=== PATIENT | female | born 1990 | race Caucasian/White ===

== ENCOUNTER → 2018-06-06 | Outpatient (CLI) | payer OTHER ==
[~2018-06-06] MED LIST: BIRTH CONTROL; OXYC-90 PO; PROM25TA PO; TRVOPS OP
[2018-06-06 12:20] LABS: HEMATOCRIT 41.2 % (37-47); HEMOGLOBIN 13.6 g/dL (12.0-16.0); MEAN CELL VOLUME 90.2 fL (80-100); MEAN CORPUSCULAR HEMOGLOBIN 29.8 pg (25-34); MEAN PLATELET VOLUME 9.6 fL (7.4-10.4); PLATELET COUNT 304 K/uL (130-400); RED CELL DISTRIBUTION WIDTH CV 13.6 % (11.5-14.5); RED CELL DISTRIBUTION WIDTH SD 44.8 fL (36.4-46.3); WHITE BLOOD COUNT 6.77 K/uL (4.8-10.8)
[2018-06-06 12:37] LABS: HEMOGLOBIN A1C 5.4 % (4.5-5.6)
[2018-06-06 12:41] LABS: ALBUMIN 3.3 gm/dl (3.4-5.0); ALKALINE PHOSPHATASE 63 U/L (45-117); ALT/SGPT 43 U/L (12-78); AST/SGOT 21 U/L (15-37); BLOOD UREA NITROGEN 12 mg/dl (7-18); CALCIUM 8.8 mg/dl (8.5-10.1); CARBON DIOXIDE 26 mmol/L (21-32); CHOLESTEROL 155 mg/dl (0-200); CREATININE 0.84 mg/dl (0.60-1.20); GLUCOSE 84 mg/dl (70-99); LDL CHOLESTEROL CALCULATED 71 mg/dl; SODIUM 138 mmol/L (136-145); TOTAL PROTEIN 7.2 gm/dl (6.4-8.2)
== END | disposition home or self-care (01) ==
LOC: MERGE 09:22 → C.LAB 09:22
PROVIDERS: ATTEND Neuromusculoskeletal Medicine & OMM
DX: R73.03 Prediabetes (principal); E28.2 Polycystic ovarian syndrome; E66.01 Morbid (severe) obesity due to excess calories; E78.1 Pure hyperglyceridemia

== ENCOUNTER 2020-05-31 07:34 | Inpatient (IN) ==
[2020-05-31] MEDS ORDERED: OXYTOCIN 30 UNITS/500 ML BAG IV PRN ×2 (09:00→09:02)
--- NOTE | 2020-05-31 09:04 | History & Physical Report ---
Date of Service May 31, 2020 Assessment & Plan (1) Obesity affecting , antepartum: 29yo at 39.1 weeks GA. Presents for IOL. 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 1. Fetus: Cat 1 2. Labor: s/p Arreola. Will start oxytocin. 3. Vitals: WNL 4. GBS negative 5. Hx DVT - D/chery Heparin yesterday. SCDs during labor. Will restart Lovenox . (2) Supervision of normal intrauterine in primigravida: (3) Thrombophilia: Admission and Anticipated Discharge Date Admission Date: May 31, 2020 History of Present Illness Primary Care Provider: Antonio Martinez, DO 29yo at 39.1 weeks GA. Presents for IOL. 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 otherwise complicated by BMI ~50 and frequent migraine GARCIA. OB Labs: Blood Type AB Positive 12/04/19 Antibody Screen NEGATIVE 12/04/19 Hemoglobin 12.0 g/dL (12.0-16.0) 03/15/20 Hematocrit 36.2 % (37-47) L 03/15/20 Mean Corpuscular Volume 89.9 fL (80-100) 12/04/19 Platelet Count 332 K/uL (130-400) 12/04/19 Rubella IgG Antibody Immune (Immune) 12/04/19 Rapid Plasma Reagin Nonreactive (Nonreactive) 12/04/19 Hepatitis B Surface Antigen Neg (Neg) 12/04/19 HIV (1&2) Ab and P24 Ag, 4th Gener Neg (Neg) 12/04/19 Glucose 1 Hour 50 gm Load 138 mg/dl (70-130) H 03/15/20 Maternal Serum Alpha Fetoprotein 31.7 ng/mL 12/24/19 OB Optional Labs: Chlamydia trachomatis RNA NOT DETECTED (NOT DETECTED) 12/04/19 Neisseria gonorrhoeae RNA NOT DETECTED (NOT DETECTED) 12/04/19 Thyroid Stimulating Hormone (TSH) 2.500 uIu/ml (0.300-4.500) 06/06/18 Alpha Fetoprotein Triple Screen SEE NOTE 12/24/19 Labs Reviewed: cf/sma neg panorama low risk afp neg. Allergies Allergy/AdvReac Type Severity Reaction Status Date / Time Sulfa (Sulfonamide Allergy Intermediate HIVES Verified 05/31/20 09:13 Antibiotics) Home Medications Home Medications Medication Instructions Recorded Confirmed Type folic acid 1 mg tablet 1 mg PO DAILY 09/18/19 05/31/20 History prenat.vits,pola,hca-[id number] 1 tab PO DAILY 12/01/19 05/31/20 History fenofibrate nanocrystallized 145 145 mg PO DAILY #30 tab 12/11/19 05/31/20 Rx mg tablet breast pump #1 ea 04/27/20 05/26/20 Rx omega-3 acid ethyl esters 1 gram 2 cap PO BID #120 cap 05/11/20 05/31/20 Rx capsule propranolol 20 mg tablet 20 mg PO BID #60 tab 05/11/20 05/31/20 Rx heparin (porcine) 5,000 unit SUBCUT Q12H 05/30/20 05/31/20 History Patient History Social History Preferred Language: Jamaican Communication Ability: Effective Visual Impairment: No Limitations Hearing Ability: Normal 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: No Beliefs That Will Affect Care: None marital status: marital status details: Mary Lou Urbano (28) [phone] Current Living Situation: Spouse Current Living Situation Comment: lives with spouse, no pets current occupational status: employed 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 Other Information That Helps Us Care for You: No Feels Safe at Home: Yes Safety Concerns: Feels Safe At This Time Smoking Status: Never smoker Hx Alcohol Use: No Hx Substance Use: No Childhood Exposure to Second-Hand Smoke: No Dental Care, Regularly: Yes Physical Activity Frequency: 1-2 Times per Week Seatbelt Use: always Sunscreen Use: Yes Do you think of yourself as: straight/heterosexual Physical Exam Gastrointestinal (Abdomen): Inspection/Auscultation: abdomen normal to inspection Percussion/Palpation: abdomen soft; abdomen nontender, no guarding and abdomen not rigid Genitourinary: OB Exam Abdomen: + vertex (By US) Manual OB Exam: + cervical dilation 3 cm, + cervical effacement 50% and + station high OB Exam Monitor Tracing: + external FHT monitor used, + external uterine monitor used, + category I and + normal FHT variability; no category II, no category III, no early decelerations present, no late decelerations present and no variable decelerations Results & Data ([facility]) Vital Signs (Past 12 Hours) Vital Signs Temp Pulse Resp BP 05/31/20 07:51 37.1 C 67 16 115/72 05/31/20 07:50 67 115/72 05/31/20 07:49 37.1 C 16 Coding Level of Care Code None Diagnoses Obesity affecting , antepartum O99.210 Supervision of normal intrauterine in primigravida Z34.00 Thrombophilia D68.59
[2020-05-31 09:25] LABS: Hematocrit (blood only) 38.4 % (37-47); Hemoglobin 12.2 g/dL (12.0-16.0); Mean Corpuscular Hemoglobin 29.4 pg (25-34); Mean Corpuscular Volume 92.5 fL (80-100); Mean Platelet Volume 9.2 fL (7.4-10.4); Platelet Count 307 K/uL (130-400); RDW Coefficient of Variation 13.6 % (11.5-14.5); Red Blood Count 4.15 M/uL (4.2-5.4); White Blood Count 11.62 K/uL (4.8-10.8)
[2020-05-31 09:46] LABS: Mean Corpuscular Hgb Conc 31.8 g/dL (32-36)
[2020-05-31] MEDS: LACTATED RINGER'S 1,000 ML IV PRN ×4 (10:24→22:08)
--- NOTE | 2020-05-31 13:21 | Labor Progress Brief Note ---
Date of Service May 31, 2020 Subjective Reason For Note: Routine Evaluation Assessment & Plan (1) Obesity affecting , antepartum: 29yo at 39.1 weeks GA. Presents for IOL. 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 1. Fetus: Cat 1 2. Labor: s/p Arreola. Continue oxytocin. AROM. IUPC placed 3. Vitals: WNL 4. GBS negative 5. Hx DVT - D/chery Heparin yesterday. SCDs during labor. Will restart Lovenox . (2) Supervision of normal intrauterine in primigravida: (3) Thrombophilia: Admission and Anticipated Discharge Date Admission Date: May 31, 2020 Physical Exam Genitourinary: OB Exam Abdomen: + vertex Manual OB Exam: + cervical dilation 4 cm, + cervical effacement 60%, + station -2 and + amniotic fluid bloody OB Exam Monitor Tracing: + external FHT monitor used, + external uterine monitor used, + category I and + normal FHT variability IUPC placed, AROM Results & Data ([facility]) Vital Signs (Past 12 Hours) Vital Signs Temp Pulse Resp BP 05/31/20 13:07 36.7 C 16 05/31/20 12:25 57 L 120/59 L 05/31/20 11:26 55 L 129/70 05/31/20 10:24 56 L 126/80 05/31/20 07:51 37.1 C 67 16 115/72 05/31/20 07:50 67 115/72 05/31/20 07:49 37.1 C 16 Coding Level of Care Code None Diagnoses Obesity affecting , antepartum O99.210 Supervision of normal intrauterine in primigravida Z34.00 Thrombophilia D68.59
[2020-05-31] MEDS ORDERED: ePHEDrine sulfate 50 MG/ML AMP ONE (13:26)
[2020-05-31] MEDS ORDERED: fentaNYL citrate 100 MCG/2 ML VIAL ONE (13:26)
[2020-05-31] MEDS ORDERED: BUPIVACAINE 0.25% 30 ML VIAL ONE (13:26)
[2020-05-31] MEDS ORDERED: fentaNYL 2MCG/ML ROPIV 1.25MG/ML 100 ML BAG EPI ONE (13:27)
--- NOTE | 2020-05-31 14:02 | Anesthesiology Consultation ---
Date of Service May 31, 2020 Assessment & Plan Chart Review Chart Review: Acceptable Risk for Surgery, Patient NOT seen in Pre Admission Testing and Acceptable Risk for Labor Epidural Consults Requested none ASA ASA3 Proposed Anesthesia Anesthesia Type: Labor Epidural and CSE Risk / Benefits Reviewed With: PT / POA / Parent / Guardian, Accepts Plan and Informed Consent Obtained History Height/Weight Height: 5 ft 4 in Weight: 131.088 kg Allergies Allergy/AdvReac Type Severity Reaction Status Date / Time Sulfa (Sulfonamide Allergy Intermediate HIVES Verified 05/31/20 09:13 Antibiotics) Medications Home Medications Medication Instructions Recorded Confirmed Last Taken folic acid 1 mg tablet 1 mg PO DAILY 09/18/19 05/31/20 05/31/20 06:00 prenat.vits,pola,bdc-[id number] 1 tab PO DAILY 12/01/19 05/31/20 05/31/20 06:00 fenofibrate nanocrystallized 145 145 mg PO DAILY #30 tab 12/11/19 05/31/20 05/30/20 22:30 mg tablet breast pump #1 ea 04/27/20 05/26/20 Unknown omega-3 acid ethyl esters 1 gram 2 cap PO BID #120 cap 05/11/20 05/31/20 05/31/20 06:00 capsule propranolol 20 mg tablet 20 mg PO BID #60 tab 05/11/20 05/31/20 05/31/20 06:00 heparin (porcine) 5,000 unit SUBCUT Q12H 05/30/20 05/31/20 05/30/20 09:30 Active Medications Generic Name Dose Route Start Last Admin Trade Name Freq PRN Reason Stop Dose Admin Lactated Ringer's 1,000 mls @ 125 mls/hr 05/31/20 09:00 05/31/20 13:25 Lr IV 06/02/20 08:59 999 mls/hr .Q8H PRN Infusion L&D Protocol Protocol Oxytocin 30 units in 500 mls @ 4 mls/hr 05/31/20 09:02 05/31/20 12:49 Pitocin IV 06/02/20 09:01 0.24 units/hr .Q24H PRN 4 mls/hr Labor Induction/Augmentation Titration Protocol 0.24 UNITS/HR NPO Date Last Intake of Fluids: 05/31/20 Time Last Intake of Fluids: 13:00 Date Last Intake of Solids: 05/31/20 Time Last Intake of Solids: 06:00 Past Medical History Medical History Encounter for anatomic survey Hx of renal calculi Hx of varicella Hypertriglyceridemia Migraine headache PCOS (polycystic ovarian syndrome) Pre-diabetes Thrombophilia Exercise / Class Metabolic Activity III < 4 Walking/Shop/Light housework Past Family History Family History Father Diabetes Grandfather (Maternal) Diabetes Mother Hypertension Epilepsy Denies family history of Ovarian cancer Prostate cancer Myocardial infarction Breast cancer Colorectal cancer Past Surgical History Surgical History S/P cholecystectomy Macy teeth removed Past Anesthesia History No Hx of Anesthesia Complications and No Family Hx of Anesthesia Complications History of PONV No Hx of PONV and No Hx of Motion Sickness Social History Smoking Status: Never smoker Hx Alcohol Use: No Hx Substance Use: No substance use type: does not use Physical Exam Vital Signs Last Vital Signs Temp 36.7 C 05/31/20 13:07 Pulse 54 L 05/31/20 13:55 Resp 16 05/31/20 13:07 BP 149/83 H 05/31/20 13:25 Pulse Ox 99 05/31/20 13:55 Constitutional + morbidly obese ENMT Mouth: no dentition abnormality Thyromental Distance: < 3.5 Finger Breadths Mallampati Class: II Neck normal visual inspection and trachea midline; neck extension not limited Respiratory normal respiratory effort Auscultation: lungs clear to auscultation bilaterally Cardiovascular Rate/Rhythm: regular rate and regular rhythm Heart Sounds: no murmur Vessels: no carotid bruit Musculoskeletal Spine: lumbar spine normal to inspection; normal cervical ROM Neurologic moves all extremities Motor/Sensory: no sensory deficit Psychiatric Orientation: alert and oriented x 3 Testing Laboratory Results 05/31/20 09:16 not covid tested
[2020-05-31] MEDS ORDERED: NALOXONE HCL 1 MG in SODIUM CHLORIDE 0.9% 1000ML 1,000 ML IV PRN (14:31)
[2020-05-31] MEDS ORDERED: ePHEDrine sulfate 50 MG/ML AMP IV PRN (14:31)
[2020-05-31] MEDS ORDERED: ONDANSETRON INJ 2 MG/ML 2 ML VIAL IV PRN (14:31)
[2020-05-31] MEDS ORDERED: DiphenhydrAMINE HCL 50 MG/ML VIAL IV PRN (14:31)
[2020-05-31] MEDS ORDERED: NALOXONE HCL 0.4 MG/1 ML VIAL/CARP IV PRN (14:31)
[2020-05-31] MEDS ORDERED: PROMETHAZINE HCL 25 MG in SODIUM CHLORIDE 0.9% 50 ML IV PRN (14:31)
--- NOTE | 2020-05-31 18:57 | Labor Progress Brief Note ---
Date of Service May 31, 2020 Subjective Reason For Note: Routine Evaluation Assessment & Plan (1) Obesity affecting , antepartum: 29yo at 39.1 weeks GA. Presents for IOL. 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 1. Fetus: Cat 1 2. Labor: Minimal progress. s/p Arreola. Continue oxytocin. AROM. IUPC in placed with adequate contractions 3. Vitals: WNL 4. GBS negative 5. Hx DVT - D/chery Heparin yesterday. SCDs during labor. Will restart Lovenox . (2) Supervision of normal intrauterine in primigravida: (3) Thrombophilia: Admission and Anticipated Discharge Date Admission Date: May 31, 2020 Physical Exam Genitourinary: OB Exam Abdomen: + vertex Manual OB Exam: + cervical dilation 5 cm, + cervical effacement 60%, + station -2 and + amniotic fluid OB Exam Monitor Tracing: + external FHT monitor used, + external uterine monitor used, + category I and + normal FHT variability Results & Data ([facility]) Vital Signs (Past 12 Hours) Vital Signs Temp Pulse Resp BP Pulse Ox 05/31/20 18:50 56 L 98 05/31/20 18:49 58 L 115/56 L 05/31/20 18:45 56 L 97 05/31/20 18:40 64 99 05/31/20 18:35 55 L 97 05/31/20 18:33 58 L 112/54 L 05/31/20 18:30 55 L 96 05/31/20 18:29 16 05/31/20 18:25 59 L 97 05/31/20 18:20 55 L 97 05/31/20 18:19 59 L 116/59 L 05/31/20 18:15 51 L 96 05/31/20 18:10 51 L 96 05/31/20 18:05 68 115/55 L 97 05/31/20 18:00 58 L 18 97 05/31/20 17:55 66 99 05/31/20 17:50 62 123/55 L 99 05/31/20 17:45 54 L 100 05/31/20 17:40 50 L 100 05/31/20 17:35 54 L 99 05/31/20 17:34 56 L 122/56 L 05/31/20 17:30 60 20 99 05/31/20 17:25 53 L 98 05/31/20 17:20 53 L 99 05/31/20 17:19 50 L 122/58 L 05/31/20 17:15 50 L 99 05/31/20 17:10 65 98 05/31/20 17:05 57 L 125/57 L 98 05/31/20 17:00 36.3 C L 52 L 18 98 05/31/20 16:55 52 L 98 05/31/20 16:51 53 L 110/55 L 05/31/20 16:50 52 L 97 05/31/20 16:45 49 L 97 05/31/20 16:40 56 L 96 05/31/20 16:35 51 L 97 05/31/20 16:30 56 L 18 96 05/31/20 16:29 53 L 105/51 L 05/31/20 16:28 55 L 94 05/31/20 16:25 49 L 98 05/31/20 16:24 52 L 118/58 L 05/31/20 16:20 49 L 108/52 L 96 05/31/20 16:15 51 L 113/56 L 96 05/31/20 16:13 53 L 94 05/31/20 16:10 50 L 98/54 L 96 05/31/20 16:07 55 L 94 05/31/20 16:05 50 L 106/53 L 96 05/31/20 16:00 50 L 18 107/52 L 95 05/31/20 15:55 51 L 114/56 L 97 05/31/20 15:50 50 L 99 05/31/20 15:48 48 L 112/53 L 05/31/20 15:45 52 L 18 114/54 L 96 05/31/20 15:40 48 L 97 05/31/20 15:39 48 L 114/57 L 05/31/20 15:35 50 L 120/56 L 98 05/31/20 15:33 53 L 93 05/31/20 15:30 58 L 16 97 05/31/20 15:29 56 L 103/52 L 05/31/20 15:25 51 L 94 05/31/20 15:23 49 L 114/54 L 94 05/31/20 15:20 52 L 95 05/31/20 15:19 48 L 116/58 L 05/31/20 15:17 51 L 94 05/31/20 15:15 53 L 18 96 05/31/20 15:13 52 L 104/54 L 05/31/20 15:10 51 L 112/53 L 96 05/31/20 15:05 54 L 96 05/31/20 15:03 55 L 102/52 L 05/31/20 15:01 49 L 115/55 L 05/31/20 15:00 36.6 C 53 L 16 97 05/31/20 14:59 50 L 114/54 L 05/31/20 14:57 51 L 115/57 L 05/31/20 14:55 53 L 113/56 L 97 05/31/20 14:53 53 L 102/56 L 05/31/20 14:51 48 L 114/56 L 05/31/20 14:50 50 L 97 05/31/20 14:49 48 L 116/58 L 05/31/20 14:47 50 L 121/55 L 05/31/20 14:45 53 L 16 113/59 L 96 05/31/20 14:43 51 L 110/55 L 05/31/20 14:41 48 L 113/59 L 05/31/20 14:40 50 L 97 05/31/20 14:39 49 L 113/61 05/31/20 14:37 49 L 108/54 L 05/31/20 14:35 56 L 112/57 L 97 05/31/20 14:33 50 L 114/58 L 05/31/20 14:31 49 L 111/55 L 05/31/20 14:30 53 L 18 97 05/31/20 14:26 206 H 112/59 L 05/31/20 14:25 51 L 97 05/31/20 14:20 53 L 97 05/31/20 14:15 60 97 05/31/20 14:10 58 L 99 05/31/20 14:05 68 100 05/31/20 14:00 60 98 05/31/20 13:55 54 L 99 05/31/20 13:25 55 L 149/83 H 05/31/20 13:07 36.7 C 16 05/31/20 12:25 57 L 120/59 L 05/31/20 11:26 55 L 129/70 05/31/20 10:24 56 L 126/80 05/31/20 07:51 37.1 C 67 16 115/72 05/31/20 07:50 67 115/72 05/31/20 07:49 37.1 C 16 Coding Level of Care Code None Diagnoses Obesity affecting , antepartum O99.210 Supervision of normal intrauterine in primigravida Z34.00 Thrombophilia D68.59
[2020-05-31] MEDS: fentaNYL 2MCG/ML ROPIV 1.25MG/ML 100 ML BAG EPI PRN (23:23)
[2020-06-01] MEDS ORDERED: Nursing to Pharmacy Communication SCH (00:15)
--- NOTE | 2020-06-01 02:21 | Labor Progress Brief Note ---
Date of Service June 01, 2020 Subjective Reason For Note: Routine Evaluation Assessment & Plan (1) Obesity affecting , antepartum: 29yo at 39.1 weeks GA. Presents for IOL. 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 1. Fetus: Cat 1 2. Labor: Minimal progress. s/p Arreola. Continue oxytocin. AROM. IUPC in placed with adequate contractions 3. Vitals: WNL 4. GBS negative 5. Hx DVT - D/chery Heparin yesterday. SCDs during labor. Will restart Lovenox . (2) Supervision of normal intrauterine in primigravida: (3) Thrombophilia: Admission and Anticipated Discharge Date Admission Date: May 31, 2020 Physical Exam Genitourinary: Manual OB Exam: + cervical dilation (5.5), + cervical effacement 60% and + station -2 OB Exam Monitor Tracing: + scalp electrode used, + intra-uterine pressure catheter used, + category I and + normal FHT variability; no early decelerations present, no late decelerations present and no variable decelerations Results & Data ([facility]) Vital Signs (Past 12 Hours) Vital Signs Temp Pulse Resp BP Pulse Ox 06/01/20 02:15 78 98 06/01/20 02:13 39.6 C H 18 06/01/20 02:10 69 94 06/01/20 02:07 72 94 06/01/20 02:05 67 95 06/01/20 02:03 73 136/77 06/01/20 02:00 72 94 06/01/20 01:55 69 94 06/01/20 01:50 67 95 06/01/20 01:49 70 94 06/01/20 01:48 73 131/73 06/01/20 01:45 67 94 06/01/20 01:43 75 94 06/01/20 01:40 72 94 06/01/20 01:38 68 94 06/01/20 01:35 67 94 06/01/20 01:33 67 131/69 06/01/20 01:32 68 94 06/01/20 01:30 66 94 06/01/20 01:26 68 94 06/01/20 01:25 66 94 06/01/20 01:22 18 06/01/20 01:20 65 94 06/01/20 01:19 74 131/76 06/01/20 01:15 65 94 06/01/20 01:13 74 94 06/01/20 01:10 69 95 06/01/20 01:08 73 94 06/01/20 01:05 69 94 06/01/20 01:04 72 132/69 06/01/20 01:02 63 94 06/01/20 01:00 71 94 06/01/20 00:57 73 94 06/01/20 00:55 74 95 06/01/20 00:52 61 94 06/01/20 00:50 68 96 06/01/20 00:49 71 127/71 06/01/20 00:45 62 95 06/01/20 00:40 69 96 06/01/20 00:35 69 186/83 H 99 06/01/20 00:30 62 97 06/01/20 00:25 65 95 06/01/20 00:20 66 96 06/01/20 00:19 68 136/72 06/01/20 00:15 63 96 06/01/20 00:10 67 97 06/01/20 00:05 66 97 06/01/20 00:04 63 126/75 06/01/20 00:00 61 99 05/31/20 23:55 63 97 05/31/20 23:50 59 L 140/75 97 05/31/20 23:45 60 99 05/31/20 23:40 62 99 05/31/20 23:35 63 97 05/31/20 23:34 63 145/78 H 05/31/20 23:30 62 98 05/31/20 23:25 61 99 05/31/20 23:20 62 97 05/31/20 23:18 61 151/79 H 05/31/20 23:15 83 98 05/31/20 23:10 63 97 05/31/20 23:05 65 98 05/31/20 23:04 68 128/74 05/31/20 23:00 36.8 C 69 18 94 05/31/20 22:55 62 94 05/31/20 22:50 67 94 05/31/20 22:49 62 139/67 94 05/31/20 22:45 62 94 05/31/20 22:40 62 94 05/31/20 22:35 61 94 05/31/20 22:33 57 L 130/67 94 05/31/20 22:30 66 94 05/31/20 22:27 65 94 05/31/20 22:25 60 93 05/31/20 22:20 62 125/66 94 05/31/20 22:15 56 L 94 05/31/20 22:10 53 L 95 05/31/20 22:05 54 L 95 05/31/20 22:04 60 135/65 05/31/20 22:03 57 L 94 05/31/20 22:00 56 L 95 05/31/20 21:59 18 05/31/20 21:57 55 L 94 05/31/20 21:55 55 L 96 05/31/20 21:50 56 L 124/60 96 05/31/20 21:45 57 L 96 05/31/20 21:40 61 97 05/31/20 21:35 56 L 154/69 H 96 05/31/20 21:30 67 97 05/31/20 21:25 57 L 99 05/31/20 21:20 58 L 96 05/31/20 21:18 64 132/63 05/31/20 21:15 65 97 05/31/20 21:10 59 L 97 05/31/20 21:05 67 145/70 H 96 05/31/20 21:00 36.9 C 54 L 97 05/31/20 20:55 56 L 18 97 05/31/20 20:50 49 L 141/78 H 99 05/31/20 20:45 52 L 98 05/31/20 20:40 61 98 05/31/20 20:35 58 L 99 05/31/20 20:33 55 L 149/78 H 05/31/20 20:30 58 L 99 05/31/20 20:25 57 L 97 05/31/20 20:20 54 L 143/77 H 97 05/31/20 20:15 52 L 98 05/31/20 20:10 53 L 98 05/31/20 20:05 50 L 141/67 H 98 05/31/20 20:01 18 05/31/20 20:00 53 L 99 05/31/20 19:55 53 L 99 05/31/20 19:50 54 L 126/62 97 05/31/20 19:45 54 L 97 05/31/20 19:40 70 98 05/31/20 19:35 53 L 98 05/31/20 19:34 53 L 128/62 05/31/20 19:31 18 05/31/20 19:30 50 L 97 05/31/20 19:25 57 L 98 05/31/20 19:20 57 L 98 05/31/20 19:18 60 122/63 05/31/20 19:15 58 L 98 05/31/20 19:10 58 L 97 05/31/20 19:09 36.8 C 18 05/31/20 19:05 64 127/62 99 05/31/20 19:00 70 18 99 05/31/20 18:55 60 98 05/31/20 18:50 56 L 98 05/31/20 18:49 58 L 115/56 L 05/31/20 18:45 56 L 97 05/31/20 18:40 64 99 05/31/20 18:35 55 L 97 05/31/20 18:33 58 L 112/54 L 05/31/20 18:30 55 L 96 05/31/20 18:29 16 05/31/20 18:25 59 L 97 05/31/20 18:20 55 L 97 05/31/20 18:19 59 L 116/59 L 05/31/20 18:15 51 L 96 05/31/20 18:10 51 L 96 05/31/20 18:05 68 115/55 L 97 05/31/20 18:00 58 L 18 97 05/31/20 17:55 66 99 05/31/20 17:50 62 123/55 L 99 05/31/20 17:45 54 L 100 05/31/20 17:40 50 L 100 05/31/20 17:35 54 L 99 05/31/20 17:34 56 L 122/56 L 05/31/20 17:30 60 20 99 05/31/20 17:25 53 L 98 05/31/20 17:20 53 L 99 05/31/20 17:19 50 L 122/58 L 05/31/20 17:15 50 L 99 05/31/20 17:10 65 98 05/31/20 17:05 57 L 125/57 L 98 05/31/20 17:00 36.3 C L 52 L 18 98 05/31/20 16:55 52 L 98 05/31/20 16:51 53 L 110/55 L 05/31/20 16:50 52 L 97 05/31/20 16:45 49 L 97 05/31/20 16:40 56 L 96 05/31/20 16:35 51 L 97 05/31/20 16:30 56 L 18 96 05/31/20 16:29 53 L 105/51 L 05/31/20 16:28 55 L 94 05/31/20 16:25 49 L 98 05/31/20 16:24 52 L 118/58 L 05/31/20 16:20 49 L 108/52 L 96 05/31/20 16:15 51 L 113/56 L 96 05/31/20 16:13 53 L 94 05/31/20 16:10 50 L 98/54 L 96 05/31/20 16:07 55 L 94 05/31/20 16:05 50 L 106/53 L 96 05/31/20 16:00 50 L 18 107/52 L 95 05/31/20 15:55 51 L 114/56 L 97 05/31/20 15:50 50 L 99 05/31/20 15:48 48 L 112/53 L 05/31/20 15:45 52 L 18 114/54 L 96 05/31/20 15:40 48 L 97 05/31/20 15:39 48 L 114/57 L 05/31/20 15:35 50 L 120/56 L 98 05/31/20 15:33 53 L 93 05/31/20 15:30 58 L 16 97 05/31/20 15:29 56 L 103/52 L 05/31/20 15:25 51 L 94 05/31/20 15:23 49 L 114/54 L 94 05/31/20 15:20 52 L 95 05/31/20 15:19 48 L 116/58 L 05/31/20 15:17 51 L 94 05/31/20 15:15 53 L 18 96 05/31/20 15:13 52 L 104/54 L 05/31/20 15:10 51 L 112/53 L 96 05/31/20 15:05 54 L 96 05/31/20 15:03 55 L 102/52 L 05/31/20 15:01 49 L 115/55 L 05/31/20 15:00 36.6 C 53 L 16 97 05/31/20 14:59 50 L 114/54 L 05/31/20 14:57 51 L 115/57 L 05/31/20 14:55 53 L 113/56 L 97 05/31/20 14:53 53 L 102/56 L 05/31/20 14:51 48 L 114/56 L 05/31/20 14:50 50 L 97 05/31/20 14:49 48 L 116/58 L 05/31/20 14:47 50 L 121/55 L 05/31/20 14:45 53 L 16 113/59 L 96 05/31/20 14:43 51 L 110/55 L 05/31/20 14:41 48 L 113/59 L 05/31/20 14:40 50 L 97 05/31/20 14:39 49 L 113/61 05/31/20 14:37 49 L 108/54 L 05/31/20 14:35 56 L 112/57 L 97 05/31/20 14:33 50 L 114/58 L 05/31/20 14:31 49 L 111/55 L 05/31/20 14:30 53 L 18 97 05/31/20 14:26 206 H 112/59 L 05/31/20 14:25 51 L 97 Coding Level of Care Code None Diagnoses Obesity affecting , antepartum O99.210 Supervision of normal intrauterine in primigravida Z34.00 Thrombophilia D68.59
[2020-06-01] MEDS: LACTATED RINGER'S 1,000 ML IV PRN (05:23)
[2020-06-01] MEDS: fentaNYL 2MCG/ML ROPIV 1.25MG/ML 100 ML BAG EPI PRN (05:45)
[2020-06-01] MEDS ORDERED: CEFAZOLIN 3000MG 72.5 ML IV SCH (06:00)
[2020-06-01] MEDS ORDERED: CITRIC ACID/SODIUM CITRATE 15 ML UDC PO SCH (06:00)
--- NOTE | 2020-06-01 06:52 | Labor Progress Brief Note ---
Date of Service June 01, 2020 Subjective Reason For Note: Routine Evaluation Assessment & Plan (1) Obesity affecting , antepartum: 29yo at 39.1 weeks GA. Presents for IOL. 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 Patient has had no significant cervical change since with adequate contractions for >12 hours. Discussed minimal labor progress and recommended [facility] c-sections for failure to progress. Surgical risks discussed and consents reviewed and signed. 1. Fetus: Cat 1 2. Labor: No progress. s/p Arreola. Continue oxytocin. AROM. IUPC in placed with adequate contractions 3. Vitals: WNL 4. GBS negative 5. Hx DVT - D/chery Heparin yesterday. SCDs during labor. Will restart Lovenox . (2) Supervision of normal intrauterine in primigravida: (3) Thrombophilia: Admission and Anticipated Discharge Date Admission Date: May 31, 2020 Physical Exam Genitourinary: OB Exam Abdomen: + vertex Manual OB Exam: + cervical dilation (5.5), + cervical effacement 60%, + station -2 and + amniotic fluid clear OB Exam Monitor Tracing: + scalp electrode used, + intra-uterine pressure catheter used, + category I and + normal FHT variability Results & Data ([facility]) Vital Signs (Past 12 Hours) Vital Signs Temp Pulse Resp BP Pulse Ox 06/01/20 06:40 68 100 06/01/20 06:36 68 152/74 H 06/01/20 06:35 68 100 06/01/20 06:30 73 98 06/01/20 06:25 90 98 06/01/20 06:20 70 135/65 98 06/01/20 06:15 74 99 06/01/20 06:10 71 100 06/01/20 06:07 96 H 94 06/01/20 06:05 69 95 06/01/20 06:04 72 120/66 06/01/20 06:01 18 06/01/20 06:00 71 96 06/01/20 05:55 73 100 06/01/20 05:50 68 99 06/01/20 05:49 66 137/69 06/01/20 05:48 37.3 C 18 06/01/20 05:45 66 99 06/01/20 05:40 68 99 06/01/20 05:35 67 100 07 05:34 71 142/73 H 07 05:30 73 99 06/01/20 05:25 73 98 0707 05:20 81 149/77 H 97 20 05:15 66 96 06/01/20 05:10 63 96 06/01/20 05:05 71 96 06/01/20 05:03 72 147/69 H 06/01/20 05:00 69 95 07 04:55 64 95 06/01/20 04:51 36.9 C 18 06/01/20 04:50 63 95 06/01/20 04:49 66 145/72 H 06/01/20 04:45 61 96 06/01/20 04:40 63 96 06/01/20 04:35 62 158/77 H 97 06/01/20 04:30 64 95 06/01/20 04:25 67 95 06/01/20 04:20 62 132/66 95 07 04:15 61 95 07 04:14 69 94 07 04:10 66 95 07 04:06 68 94 0707 04:05 70 94 0707 04:04 61 134/68 07 04:01 73 94 07 04:00 65 95 06/01/20 03:56 63 94 070720 03:55 62 94 0720 03:51 63 94 0720 03:50 61 95 0720 03:48 67 131/67 070720 03:45 68 94 0720 03:40 63 94 070720 03:39 63 94 0720 03:35 63 96 070720 03:34 60 94 070720 03:33 62 132/71 070720 03:30 62 95 0707/20 03:26 70 94 0720 03:25 69 95 070720 03:20 70 96 070720 03:19 67 128/66 070720 03:15 69 95 0720 03:10 69 96 06/01/20 03:05 59 L 133/70 97 06/01/20 03:00 59 L 96 06/01/20 02:55 57 L 97 06/01/20 02:50 67 97 06/01/20 02:48 70 128/65 06/01/20 02:45 77 98 06/01/20 02:40 61 98 06/01/20 02:35 70 98 06/01/20 02:34 73 141/68 H 06/01/20 02:31 18 06/01/20 02:30 66 98 06/01/20 02:25 68 97 06/01/20 02:20 67 138/78 97 06/01/20 02:15 78 98 06/01/20 02:13 39.6 C H 18 06/01/20 02:10 69 94 06/01/20 02:07 72 94 06/01/20 02:05 67 95 06/01/20 02:03 73 136/77 06/01/20 02:00 72 94 06/01/20 01:55 69 94 06/01/20 01:50 67 95 06/01/20 01:49 70 94 06/01/20 01:48 73 131/73 06/01/20 01:45 67 94 06/01/20 01:43 75 94 06/01/20 01:40 72 94 06/01/20 01:38 68 94 06/01/20 01:35 67 94 06/01/20 01:33 67 131/69 07 01:32 68 94 06/01/20 01:30 66 94 06/01/20 01:26 68 94 06/01/20 01:25 66 94 06/01/20 01:22 18 06/01/20 01:20 65 94 06/01/20 01:19 74 131/76 07 01:15 65 94 06/01/20 01:13 74 94 07 01:10 69 95 06/01/20 01:08 73 94 06/01/20 01:05 69 94 06/01/20 01:04 72 132/69 06/01/20 01:02 63 94 06/01/20 01:00 71 94 07 00:57 73 94 06/01/20 00:55 74 95 06/01/20 00:52 61 94 07/07/20 00:50 68 96 06/01/20 00:49 71 127/71 06/01/20 00:45 62 95 06/01/20 00:40 69 96 06/01/20 00:35 69 186/83 H 99 06/01/20 00:30 62 97 06/01/20 00:25 65 95 06/01/20 00:20 66 96 06/01/20 00:19 68 136/72 06/01/20 00:15 63 96 06/01/20 00:10 67 97 06/01/20 00:05 66 97 06/01/20 00:04 63 126/75 06/01/20 00:00 61 99 05/31/20 23:55 63 97 05/31/20 23:50 59 L 140/75 97 05/31/20 23:45 60 99 05/31/20 23:40 62 99 05/31/20 23:35 63 97 05/31/20 23:34 63 145/78 H 05/31/20 23:30 62 98 05/31/20 23:25 61 99 05/31/20 23:20 62 97 05/31/20 23:18 61 151/79 H 05/31/20 23:15 83 98 05/31/20 23:10 63 97 05/31/20 23:05 65 98 05/31/20 23:04 68 128/74 05/31/20 23:00 36.8 C 69 18 94 05/31/20 22:55 62 94 05/31/20 22:50 67 94 05/31/20 22:49 62 139/67 94 05/31/20 22:45 62 94 05/31/20 22:40 62 94 05/31/20 22:35 61 94 05/31/20 22:33 57 L 130/67 94 05/31/20 22:30 66 94 05/31/20 22:27 65 94 05/31/20 22:25 60 93 05/31/20 22:20 62 125/66 94 05/31/20 22:15 56 L 94 05/31/20 22:10 53 L 95 05/31/20 22:05 54 L 95 05/31/20 22:04 60 135/65 05/31/20 22:03 57 L 94 05/31/20 22:00 56 L 95 05/31/20 21:59 18 05/31/20 21:57 55 L 94 05/31/20 21:55 55 L 96 05/31/20 21:50 56 L 124/60 96 05/31/20 21:45 57 L 96 05/31/20 21:40 61 97 05/31/20 21:35 56 L 154/69 H 96 05/31/20 21:30 67 97 05/31/20 21:25 57 L 99 05/31/20 21:20 58 L 96 05/31/20 21:18 64 132/63 05/31/20 21:15 65 97 05/31/20 21:10 59 L 97 05/31/20 21:05 67 145/70 H 96 05/31/20 21:00 36.9 C 54 L 97 05/31/20 20:55 56 L 18 97 05/31/20 20:50 49 L 141/78 H 99 05/31/20 20:45 52 L 98 05/31/20 20:40 61 98 05/31/20 20:35 58 L 99 05/31/20 20:33 55 L 149/78 H 05/31/20 20:30 58 L 99 05/31/20 20:25 57 L 97 05/31/20 20:20 54 L 143/77 H 97 05/31/20 20:15 52 L 98 05/31/20 20:10 53 L 98 05/31/20 20:05 50 L 141/67 H 98 05/31/20 20:01 18 05/31/20 20:00 53 L 99 05/31/20 19:55 53 L 99 05/31/20 19:50 54 L 126/62 97 05/31/20 19:45 54 L 97 05/31/20 19:40 70 98 05/31/20 19:35 53 L 98 05/31/20 19:34 53 L 128/62 05/31/20 19:31 18 05/31/20 19:30 50 L 97 05/31/20 19:25 57 L 98 05/31/20 19:20 57 L 98 05/31/20 19:18 60 122/63 05/31/20 19:15 58 L 98 05/31/20 19:10 58 L 97 05/31/20 19:09 36.8 C 18 05/31/20 19:05 64 127/62 99 05/31/20 19:00 70 18 99 05/31/20 18:55 60 98 05/31/20 18:50 56 L 98 05/31/20 18:49 58 L 115/56 L Coding Level of Care Code None Diagnoses Obesity affecting , antepartum O99.210 Supervision of normal intrauterine in primigravida Z34.00 Thrombophilia D68.59
--- NOTE | 2020-06-01 07:42 | Anesthesiology Consultation ---
Date of Service June 01, 2020 Assessment & Plan (1) Encounter for pre-operative examination: Chart Review Chart Review: Acceptable Risk for Surgery Consults Requested none ASA ASA3 Proposed Anesthesia Anesthesia Type: General/Epidural Risk / Benefits Reviewed With: PT / POA / Parent / Guardian, Accepts Plan and Informed Consent Obtained Additional Notes Pt has a functioning epidural, backup anesthesia is general anesthesia History Surgery Operation Date: 06/01/20 06:15 Proposed Procedures p Section in LD - Marcin Richards MD Height/Weight Height: 5 ft 4 in Weight: 131.088 kg Allergies Allergy/AdvReac Type Severity Reaction Status Date / Time Sulfa (Sulfonamide Allergy Intermediate HIVES Verified 05/31/20 09:13 Antibiotics) Medications Home Medications Medication Instructions Recorded Confirmed Last Taken folic acid 1 mg tablet 1 mg PO DAILY 09/18/19 05/31/20 05/31/20 06:00 prenat.vits,pola,gth-atnx-laaok 1 tab PO DAILY 12/01/19 05/31/20 05/31/20 06:00 fenofibrate nanocrystallized 145 145 mg PO DAILY #30 tab 12/11/19 05/31/20 05/30/20 22:30 mg tablet breast pump #1 ea 04/27/20 05/26/20 Unknown omega-3 acid ethyl esters 1 gram 2 cap PO BID #120 cap 05/11/20 05/31/20 05/31/20 06:00 capsule propranolol 20 mg tablet 20 mg PO BID #60 tab 05/11/20 05/31/20 05/31/20 06:00 heparin (porcine) 5,000 unit SUBCUT Q12H 05/30/20 05/31/20 05/30/20 09:30 Active Medications Generic Name Dose Route Start Last Admin Trade Name Freq PRN Reason Stop Dose Admin Lactated Ringer's 1,000 mls @ 125 mls/hr 05/31/20 09:00 06/01/20 05:23 Lr IV 06/02/20 08:59 125 mls/hr .Q8H PRN Administration L&D Protocol Protocol Oxytocin 30 units in 500 mls @ 0 mls/hr 05/31/20 09:02 06/01/20 06:20 Pitocin IV 06/02/20 09:01 Infused .Q0M PRN Titration Labor Induction/Augmentation Protocol 0 UNITS/HR Cefazolin Sodium 72.5 mls @ 145 mls/hr 06/01/20 06:00 06/01/20 07:24 Ancef 3000mg IV 06/11/20 05:59 145 mls/hr PREOP JAYLA Administration Ropivacaine 100 ml 05/31/20 14:31 06/01/20 05:45 Epidural (L&D) EPI 06/01/20 14:30 100 ml PRN PRN Administration Pain R/T Labor Protocol NPO Date Last Intake of Fluids: 05/31/20 Time Last Intake of Fluids: 13:00 Date Last Intake of Solids: 05/31/20 Time Last Intake of Solids: 06:00 Past Medical History Medical History Encounter for anatomic survey Hx of renal calculi Hx of varicella Hypertriglyceridemia Migraine headache PCOS (polycystic ovarian syndrome) Pre-diabetes Thrombophilia Exercise / Class Metabolic Activity II 4-5 Yardwork/Stairs/Walk up hill Past Family History Family History Father Diabetes Grandfather (Maternal) Diabetes Mother Hypertension Epilepsy Denies family history of Ovarian cancer Prostate cancer Myocardial infarction Breast cancer Colorectal cancer Past Surgical History Surgical History S/P cholecystectomy [place] teeth removed Past Anesthesia History No Hx of Anesthesia Complications and No Family Hx of Anesthesia Complications History of PONV No Hx of PONV and No Hx of Motion Sickness Social History Smoking Status: Never smoker Hx Alcohol Use: No Hx Substance Use: No substance use type: does not use Physical Exam Vital Signs Last Vital Signs Temp 98.4 F 06/01/20 07:16 Pulse 77 06/01/20 07:29 Resp 18 06/01/20 06:01 BP 138/65 06/01/20 07:29 Pulse Ox 92 06/01/20 07:26 ENMT Mouth: no dentition abnormality Thyromental Distance: > or= 3.5 Finger Breadths Mallampati Class: II Neck normal visual inspection Respiratory normal respiratory effort Auscultation: lungs clear to auscultation bilaterally Cardiovascular Rate/Rhythm: regular rate and regular rhythm Testing Laboratory Results 05/31/20 09:16
[2020-06-01] MEDS ORDERED: ONDANSETRON INJ 2 MG/ML 2 ML VIAL ONE (07:50)
[2020-06-01] MEDS ORDERED: OXYTOCIN 10 UNITS/ML VIAL ONE (07:56)
[2020-06-01] MEDS ORDERED: MoRPHine SULFATE PF 1 MG/ML 10 ML AMP/VIAL ONE (07:56)
[2020-06-01] MEDS ORDERED: LIDOCAINE/EPINEPHRINE 2% 1:200,000 20 ML SDV ONE (07:56)
[2020-06-01] MEDS ORDERED: PHENYLEPHRINE 100MCG/ML 5ML SYR ONE (08:26)
[2020-06-01 08:28] LABS: Base Excess Cord Arterial Bld -1.6 mEq/L (-9-1.8); CO2 Cord Arterial Blood 51 mmHg (39.1-73.5); HCO3 Cord Arterial Blood 25 mmol/L (19.7-28.5); PO2 Cord Arterial Blood 20 mmHg (4.1-31.7); pH Cord Arterial Blood 7.31 (7.1-7.38)
[2020-06-01 08:30] LABS: Oxygen Sat Cord Arterial Blood < 60.0 % (<60)
[2020-06-01 08:31] LABS: Cord Venous Blood HCO3 24 mmol/L (18.4-26.8); Cord Venous Blood PCO2 41 mmHg (30.4-57.2); Cord Venous Blood PO2 31 mmHg (14.1-43.3); Cord Venous Blood pH 7.38 (7.20-7.44); O2 Saturation Cord Venous Bld 69.7 % (<68)
[2020-06-01] MEDS ORDERED: MEPERIDINE HCL 25 MG/ML CARP/VIAL IV PRN (08:44)
[2020-06-01] MEDS ORDERED: ePHEDrine sulfate 50 MG/ML AMP IV PRN (08:44)
[2020-06-01] MEDS ORDERED: LACTATED RINGER'S 500 ML IV PRN (08:44)
[2020-06-01] MEDS ORDERED: NALOXONE HCL 1 MG in SODIUM CHLORIDE 0.9% 1000ML 1,000 ML IV PRN (08:44)
[2020-06-01] MEDS ORDERED: MoRPHine SULFATE PF 1 MG/ML 10 ML AMP/VIAL INT SPINAL ONE (08:44)
[2020-06-01] MEDS ORDERED: ONDANSETRON INJ 2 MG/ML 2 ML VIAL IV PRN ×3 (08:44→10:32)
[2020-06-01] MEDS ORDERED: NALOXONE HCL 0.4 MG/1 ML VIAL/CARP IV PRN (08:44)
[2020-06-01] MEDS ORDERED: NALOXONE HCL 0.08 MG in SYRINGE 1.8 ML IV PRN (08:44)
[2020-06-01] MEDS ORDERED: DiphenhydrAMINE HCL 50 MG/ML VIAL IV PRN ×3 (08:44→10:32)
[2020-06-01] MEDS ORDERED: DC INTRASPINAL MORPHINE SCH (08:45)
[2020-06-01] MEDS ORDERED: NO NARCOTICS OR SEDATIVES SCH (08:45)
[2020-06-01] MEDS ORDERED: SODIUM CHLORIDE 0.9% 1000ML 1,000 ML IV SCH (08:45)
--- NOTE | 2020-06-01 09:00 | Post Operative Brief Note ---
PG Immediate Post Op with CF Date of Surgery June 01, 2020 Pre & Post Diagnosis Operation Date: 06/01/20 06:15 Pre-Op Diagnosis: 1. Term 2. Failure to Progress Post-Op Diagnosis: 1. Same I identified the patient and participated in the time-out.: Yes Procedure Operation Date: 06/01/20 06:15 Actual Procedures p Section in LD; Primary Lower Uterine Transverse Section for the of a live girl infant at 0804.(Bilateral) - Marcin Richards MD Surgeon Marcin Richards MD Manager Call Center Dr Milian Estimated Blood Loss 600 Findings Consistent with Post-Op Diagnosis Specimens Specimen Description: 1. Placenta: Hold 2. Cord Blood Obtained 3. Venous and Arterial Cord Blood Gases Obtained. Drains Arreola Catheter (Arreola catheter inserted in LDR #4 prior to transfer to OR)
[2020-06-01] MEDS ORDERED: SENNA 8.6 MG TAB PO PRN ×2 (09:01→10:32)
[2020-06-01] MEDS ORDERED: DIPHTHERIA/TETANUS/PERTUSSIS 0.5 ML SYR/VIAL IM ONE (09:01)
[2020-06-01] MEDS ORDERED: PROMETHAZINE HCL 25 MG in SODIUM CHLORIDE 0.9% 50 ML IV PRN ×2 (09:01→10:32)
[2020-06-01] MEDS ORDERED: BENZOCAINE 20% AER SPR 82.5 GM CAN EXT PRN ×2 (09:01→10:32)
[2020-06-01] MEDS ORDERED: SUPERCREAM 0.870% 15 GM JAR EXT PRN ×2 (09:01→10:32)
[2020-06-01] MEDS ORDERED: MAGNESIUM HYDROXIDE SUSP 30 ML UDC PO PRN ×2 (09:01→10:32)
[2020-06-01] MEDS ORDERED: HYDROCORTISONE ACETATE 25 MG SUPP PR PRN ×2 (09:01→10:32)
[2020-06-01] MEDS ORDERED: LACTATED RINGER'S 1,000 ML IV SCH ×2 (09:15→10:32)
[2020-06-01] MEDS: KETOROLAC 30 MG/ML VIAL IV PRN ×3 (09:19→21:49)
--- NOTE | 2020-06-01 09:40 | Anesthesiology Progress Note ---
Date of Service June 01, 2020 Anesthesia Post Procedure Vital Signs Vital Signs: Temp Pulse Resp BP Pulse Ox 06/01/20 09:38 61 133/76 06/01/20 09:36 60 97 06/01/20 09:31 57 L 98 06/01/20 09:28 59 L 132/70 06/01/20 09:26 69 99 06/01/20 09:21 58 L 99 06/01/20 09:18 60 130/70 06/01/20 09:16 56 L 99 06/01/20 09:11 60 98 06/01/20 09:07 57 L 125/59 L 06/01/20 09:06 56 L 100 06/01/20 07:29 77 138/65 06/01/20 07:26 75 137/66 92 06/01/20 07:25 78 99 06/01/20 07:24 75 133/65 06/01/20 07:20 70 99 06/01/20 07:18 75 142/73 H 06/01/20 07:16 98.4 F 98 06/01/20 07:15 76 98 06/01/20 07:10 69 99 06/01/20 07:05 74 98 06/01/20 07:04 77 141/76 H 06/01/20 07:00 72 100 06/01/20 06:55 68 99 06/01/20 06:50 70 99 06/01/20 06:48 71 155/77 H 06/01/20 06:45 67 98 06/01/20 06:40 68 100 06/01/20 06:36 68 152/74 H 06/01/20 06:35 68 100 06/01/20 06:30 73 98 06/01/20 06:25 90 98 06/01/20 06:20 70 135/65 98 06/01/20 06:15 74 99 06/01/20 06:10 71 100 06/01/20 06:07 96 H 94 06/01/20 06:05 69 95 06/01/20 06:04 72 120/66 06/01/20 06:01 18 06/01/20 06:00 71 96 06/01/20 05:55 73 100 06/01/20 05:50 68 99 06/01/20 05:49 66 137/69 07/07/20 05:48 99.1 F 18 07/07/20 05:45 66 99 0707/20 05:40 68 99 070720 05:35 67 100 070720 05:34 71 142/73 H 0720 05:30 73 99 070720 05:25 73 98 20 05:20 81 149/77 H 97 0720 05:15 66 96 0720 05:10 63 96 06/01/20 05:05 71 96 07 05:03 72 147/69 H 07 05:00 69 95 070720 04:55 64 95 070720 04:51 98.4 F 18 06/01/20 04:50 63 95 0720 04:49 66 145/72 H 0720 04:45 61 96 0720 04:40 63 96 070720 04:35 62 158/77 H 97 20 04:30 64 95 0720 04:25 67 95 07/07/20 04:20 62 132/66 95 0707/20 04:15 61 95 07/07/20 04:14 69 94 07/07/20 04:10 66 95 07/0720 04:06 68 94 07/0720 04:05 70 94 07/07/20 04:04 61 134/68 07/07/20 04:01 73 94 07/07/20 04:00 65 95 07/07/20 03:56 63 94 07/07/20 03:55 62 94 07/07/20 03:51 63 94 07/07/20 03:50 61 95 07/07/20 03:48 67 131/67 07/07/20 03:45 68 94 07/07/20 03:40 63 94 07/07/20 03:39 63 94 07/07/20 03:35 63 96 07/07/20 03:34 60 94 07/07/20 03:33 62 132/71 07/07/20 03:30 62 95 07/07/20 03:26 70 94 07/07/20 03:25 69 95 07/07/20 03:20 70 96 07/07/20 03:19 67 128/66 07/07/20 03:15 69 95 06/01/20 03:10 69 96 06/01/20 03:05 59 L 133/70 97 06/01/20 03:00 59 L 96 06/01/20 02:55 57 L 97 06/01/20 02:50 67 97 06/01/20 02:48 70 128/65 06/01/20 02:45 77 98 06/01/20 02:40 61 98 06/01/20 02:35 70 98 06/01/20 02:34 73 141/68 H 06/01/20 02:31 18 06/01/20 02:30 66 98 06/01/20 02:25 68 97 06/01/20 02:20 67 138/78 97 06/01/20 02:15 78 98 06/01/20 02:13 103.3 F H 18 06/01/20 02:10 69 94 06/01/20 02:07 72 94 06/01/20 02:05 67 95 06/01/20 02:03 73 136/77 06/01/20 02:00 72 94 06/01/20 01:55 69 94 06/01/20 01:50 67 95 06/01/20 01:49 70 94 06/01/20 01:48 73 131/73 07 01:45 67 94 06/01/20 01:43 75 94 06/01/20 01:40 72 94 06/01/20 01:38 68 94 06/01/20 01:35 67 94 07 01:33 67 131/69 07 01:32 68 94 06/01/20 01:30 66 94 06/01/20 01:26 68 94 06/01/20 01:25 66 94 06/01/20 01:22 18 06/01/20 01:20 65 94 06/01/20 01:19 74 131/76 07 01:15 65 94 07 01:13 74 94 0707 01:10 69 95 06/01/20 01:08 73 94 06/01/20 01:05 69 94 0707 01:04 72 132/69 07 01:02 63 94 06/01/20 01:00 71 94 07/07/20 00:57 73 94 06/01/20 00:55 74 95 06/01/20 00:52 61 94 06/01/20 00:50 68 96 06/01/20 00:49 71 127/71 06/01/20 00:45 62 95 06/01/20 00:40 69 96 06/01/20 00:35 69 186/83 H 99 06/01/20 00:30 62 97 06/01/20 00:25 65 95 06/01/20 00:20 66 96 06/01/20 00:19 68 136/72 06/01/20 00:15 63 96 06/01/20 00:10 67 97 06/01/20 00:05 66 97 06/01/20 00:04 63 126/75 06/01/20 00:00 61 99 05/31/20 23:55 63 97 05/31/20 23:50 59 L 140/75 97 05/31/20 23:45 60 99 05/31/20 23:40 62 99 05/31/20 23:35 63 97 05/31/20 23:34 63 145/78 H 05/31/20 23:30 62 98 05/31/20 23:25 61 99 05/31/20 23:20 62 97 05/31/20 23:18 61 151/79 H 05/31/20 23:15 83 98 05/31/20 23:10 63 97 05/31/20 23:05 65 98 05/31/20 23:04 68 128/74 05/31/20 23:00 98.2 F 69 18 94 05/31/20 22:55 62 94 05/31/20 22:50 67 94 05/31/20 22:49 62 139/67 94 05/31/20 22:45 62 94 05/31/20 22:40 62 94 05/31/20 22:35 61 94 05/31/20 22:33 57 L 130/67 94 05/31/20 22:30 66 94 05/31/20 22:27 65 94 05/31/20 22:25 60 93 05/31/20 22:20 62 125/66 94 05/31/20 22:15 56 L 94 05/31/20 22:10 53 L 95 05/31/20 22:05 54 L 95 07/06/20 22:04 60 135/65 07/06/20 22:03 57 L 94 05/31/20 22:00 56 L 95 05/31/20 21:59 18 05/31/20 21:57 55 L 94 05/31/20 21:55 55 L 96 05/31/20 21:50 56 L 124/60 96 05/31/20 21:45 57 L 96 05/31/20 21:40 61 97 05/31/20 21:35 56 L 154/69 H 96 05/31/20 21:30 67 97 05/31/20 21:25 57 L 99 05/31/20 21:20 58 L 96 05/31/20 21:18 64 132/63 05/31/20 21:15 65 97 05/31/20 21:10 59 L 97 05/31/20 21:05 67 145/70 H 96 05/31/20 21:00 98.4 F 54 L 97 05/31/20 20:55 56 L 18 97 05/31/20 20:50 49 L 141/78 H 99 05/31/20 20:45 52 L 98 05/31/20 20:40 61 98 05/31/20 20:35 58 L 99 05/31/20 20:33 55 L 149/78 H 05/31/20 20:30 58 L 99 05/31/20 20:25 57 L 97 05/31/20 20:20 54 L 143/77 H 97 05/31/20 20:15 52 L 98 05/31/20 20:10 53 L 98 05/31/20 20:05 50 L 141/67 H 98 05/31/20 20:01 18 05/31/20 20:00 53 L 99 05/31/20 19:55 53 L 99 05/31/20 19:50 54 L 126/62 97 05/31/20 19:45 54 L 97 05/31/20 19:40 70 98 05/31/20 19:35 53 L 98 05/31/20 19:34 53 L 128/62 05/31/20 19:31 18 05/31/20 19:30 50 L 97 05/31/20 19:25 57 L 98 05/31/20 19:20 57 L 98 05/31/20 19:18 60 122/63 05/31/20 19:15 58 L 98 05/31/20 19:10 58 L 97 05/31/20 19:09 98.2 F 18 05/31/20 19:05 64 127/62 99 05/31/20 19:00 70 18 99 05/31/20 18:55 60 98 05/31/20 18:50 56 L 98 05/31/20 18:49 58 L 115/56 L 05/31/20 18:45 56 L 97 05/31/20 18:40 64 99 05/31/20 18:35 55 L 97 05/31/20 18:33 58 L 112/54 L 05/31/20 18:30 55 L 96 05/31/20 18:29 16 05/31/20 18:25 59 L 97 05/31/20 18:20 55 L 97 05/31/20 18:19 59 L 116/59 L 05/31/20 18:15 51 L 96 05/31/20 18:10 51 L 96 05/31/20 18:05 68 115/55 L 97 05/31/20 18:00 58 L 18 97 05/31/20 17:55 66 99 05/31/20 17:50 62 123/55 L 99 05/31/20 17:45 54 L 100 05/31/20 17:40 50 L 100 05/31/20 17:35 54 L 99 05/31/20 17:34 56 L 122/56 L 05/31/20 17:30 60 20 99 05/31/20 17:25 53 L 98 05/31/20 17:20 53 L 99 05/31/20 17:19 50 L 122/58 L 05/31/20 17:15 50 L 99 05/31/20 17:10 65 98 05/31/20 17:05 57 L 125/57 L 98 05/31/20 17:00 97.3 F L 52 L 18 98 05/31/20 16:55 52 L 98 05/31/20 16:51 53 L 110/55 L 05/31/20 16:50 52 L 97 05/31/20 16:45 49 L 97 05/31/20 16:40 56 L 96 05/31/20 16:35 51 L 97 05/31/20 16:30 56 L 18 96 05/31/20 16:29 53 L 105/51 L 05/31/20 16:28 55 L 94 05/31/20 16:25 49 L 98 05/31/20 16:24 52 L 118/58 L 05/31/20 16:20 49 L 108/52 L 96 05/31/20 16:15 51 L 113/56 L 96 05/31/20 16:13 53 L 94 05/31/20 16:10 50 L 98/54 L 96 05/31/20 16:07 55 L 94 05/31/20 16:05 50 L 106/53 L 96 05/31/20 16:00 50 L 18 107/52 L 95 05/31/20 15:55 51 L 114/56 L 97 05/31/20 15:50 50 L 99 05/31/20 15:48 48 L 112/53 L 05/31/20 15:45 52 L 18 114/54 L 96 05/31/20 15:40 48 L 97 05/31/20 15:39 48 L 114/57 L 05/31/20 15:35 50 L 120/56 L 98 05/31/20 15:33 53 L 93 05/31/20 15:30 58 L 16 97 05/31/20 15:29 56 L 103/52 L 05/31/20 15:25 51 L 94 05/31/20 15:23 49 L 114/54 L 94 05/31/20 15:20 52 L 95 05/31/20 15:19 48 L 116/58 L 05/31/20 15:17 51 L 94 05/31/20 15:15 53 L 18 96 05/31/20 15:13 52 L 104/54 L 05/31/20 15:10 51 L 112/53 L 96 05/31/20 15:05 54 L 96 05/31/20 15:03 55 L 102/52 L 05/31/20 15:01 49 L 115/55 L 05/31/20 15:00 97.9 F 53 L 16 97 05/31/20 14:59 50 L 114/54 L 05/31/20 14:57 51 L 115/57 L 05/31/20 14:55 53 L 113/56 L 97 05/31/20 14:53 53 L 102/56 L 05/31/20 14:51 48 L 114/56 L 05/31/20 14:50 50 L 97 05/31/20 14:49 48 L 116/58 L 05/31/20 14:47 50 L 121/55 L 05/31/20 14:45 53 L 16 113/59 L 96 05/31/20 14:43 51 L 110/55 L 05/31/20 14:41 48 L 113/59 L 05/31/20 14:40 50 L 97 05/31/20 14:39 49 L 113/61 05/31/20 14:37 49 L 108/54 L 05/31/20 14:35 56 L 112/57 L 97 05/31/20 14:33 50 L 114/58 L 05/31/20 14:31 49 L 111/55 L 05/31/20 14:30 53 L 18 97 05/31/20 14:26 206 H 112/59 L 05/31/20 14:25 51 L 97 05/31/20 14:20 53 L 97 05/31/20 14:15 60 97 05/31/20 14:10 58 L 99 05/31/20 14:05 68 100 05/31/20 14:00 60 98 05/31/20 13:55 54 L 99 05/31/20 13:25 55 L 149/83 H 05/31/20 13:07 98.1 F 16 05/31/20 12:25 57 L 120/59 L 05/31/20 11:26 55 L 129/70 05/31/20 10:24 56 L 126/80 Pain Intensity Bilateral Lower Abdomen: Pain Intensity: 5 Transfer of Care Handoff Completed per policy Notes Mental Status: alert / awake / arousable and participated in evaluation Nausea / Vomiting: adequately controlled Pain: adequately controlled Airway Patency, RR, SpO2: stable & adequate BP & HR: stable & adequate Hydration State: stable & adequate Neuraxial Anesthesia: was administered and sensory block is resolving Anesthetic Complications: no major complications apparent and Pt Satisfied with anesthetic care
[2020-06-01] MEDS ORDERED: KETOROLAC 30 MG/ML VIAL IV PRN (10:32)
[2020-06-01] MEDS ORDERED: OXYCODONE/ACETAMINOPHEN 5mg/325mg TAB PO PRN (10:32)
[2020-06-01] MEDS ORDERED: IBUPROFEN 600 MG TAB PO PRN (10:32)
--- NOTE | 2020-06-01 11:01 | Operative Report ---
DATE OF OPERATION: 06/01/2020 PROCEDURE: Primary low transverse section. SURGEON: Marcin Richards MD PREOPERATIVE DIAGNOSES: 1. Single intrauterine at 39+ weeks gestational age. 2. Failure to progress. 3. History of DVT in the setting of MTHFR carrier. 4. Obesity with BMI of 50. POSTOPERATIVE DIAGNOSES: Same status post procedure. ESTIMATED BLOOD LOSS: 600 mL DRAINS: Arreola catheter. FLUIDS: Continuous lactated ringer. URINE OUTPUT: Per Arreola catheter. COMPLICATIONS: None. FINDINGS: Viable with weight pending and Apgars of 8 and 9 at 1 and 5 minutes respectively. INDICATIONS: Ms. Urbano is a 29-year-old , presented for induction of labor at 39+ weeks gestational age. At initial evaluation, the patient was found to be approximately 3 cm dilated, 50% effaced, -3 station. She was started on oxytocin per regular protocol. She later underwent artificial rupture of membranes and received an epidural for anesthesia. The patient did progress to approximately 5 to 5.5 cm dilated, 60% effaced, -2 station. An IUPC was placed at approximately noon on first day of induction. The patient was noted to have adequate contractions for early afternoon at approximately 2-3 o'clock until time of the was called with no significant cervical change noted beyond 5.5 cm. After the patient was found to be the same cervical dilation with greater than 12 hours of adequate contractions, we discussed a section versus continued labor. Risks of versus continued labor were discussed with the patient and her partner opted to proceed with a primary section for failure to progress. The patient was consented at that time including both risks and benefits of the procedure. DESCRIPTION OF PROCEDURE: The patient was taken to the operating room after consents were ensured. Upon presentation, she was properly identified. The patient had an epidural anesthesia, was bolused to achieve adequate surgical levels. The patient was then prepped and draped in normal sterile fashion. Preprocedure timeout was performed. A Pfannenstiel incision was then made with a knife and was carried down to underlying fascia with the Bovie. The fascia was nicked at the midline with the knife and was extended laterally in each direction with pickjonathan and Kruger scissors. The superior aspect of the fascia was then grasped with Kochmane x2 elevated off underlying rectus muscle using blunt dissection. The inferior aspect of the fascia was then grasped with Kochers x2, elevated off the underlying rectus muscles using blunt dissection. The midline was then bluntly entered. Adequate room for delivery was made with stretch. The bladder blade was inserted and bladder flap was created. A low transverse uterine incision was then made with a knife and then the uterine cavity was entered bluntly. The head of the was noted to be in cephalic position and was not well engaged and in an asynclitic presentation. The head of the was delivered to the hysterotomy without difficulty. Body and shoulders quickly followed. was noted to be vigorous upon delivery. The cord was then double clamped and cut. was taken to the waiting nursery staff. Cord segment and cord blood were obtained for which the attention was turned to deliver the placenta, which was delivered intact, 3-vessel cord, gentle cord traction and fundal massage. Uterus was exteriorized and several passes were made to remove any remaining membranes with a wet lap. The bladder blade was then reinserted and the hysterotomy was closed with 0 Vicryl continuous running locked suture, second imbricating layer of 0 Vicryl was then performed. The hysterotomy was noted to be hemostatic. Posterior cul-de-sac was then cleaned of clots and debris. Uterus was returned to maternal abdomen. The right and left pericolic gutters were cleaned of clots and debris. The hysterotomy was reinspected and noted to be hemostatic. The subcutaneous fascial layers were then inspected and made to be hemostatic with cautery and a few small sutures. The fascial layers were reapproximated with 0 Vicryl in continuous running stitch. The subcutaneous layers were reapproximated in 3 layers with 2-0 plain. Skin was reapproximated with 3-0 Vicryl on a Kendell needle in subcuticular stitch. Needle, sponge and instrument counts were correct at the completion of the case. The patient received 3 grams of Ancef in the OR. Mother and were both stable in immediate post-delivery period. I attest to the content of the Intraoperative Record and any orders documented therein. Any exception s are noted below.
[2020-06-01] MEDS ORDERED: SIMETHICONE 80 MG CHEW PO SCH (13:00)
[2020-06-01] MEDS: PROPRANOLOL HCL 20 MG TAB PO SCH ×2 (14:16→21:45)
[2020-06-01] MEDS: OXYTOCIN 20 UNITS in LACTATED RINGER'S 1,000 ML IV SCH ×2 (14:17→21:45)
[2020-06-01] MEDS: SIMETHICONE 80 MG CHEW PO SCH ×3 (14:17→21:45)
[2020-06-01] MEDS ORDERED: DOCUSATE SODIUM 100 MG CAP PO SCH (21:00)
[2020-06-01] MEDS: DOCUSATE SODIUM 100 MG CAP PO SCH (21:45)
[2020-06-02] MEDS ORDERED: MEPERIDINE HCL 50 MG/ML CARP IV PRN (02:45)
[2020-06-02] MEDS ORDERED: KETOROLAC 30 MG/ML VIAL IV PRN (02:45)
[2020-06-02] MEDS: OXYCODONE/ACETAMINOPHEN 5mg/325mg TAB PO PRN ×3 (05:52→20:47)
[2020-06-02] MEDS: IBUPROFEN 600 MG TAB PO PRN ×3 (05:53→20:47)
[2020-06-02 06:14] LABS: Basophils # (auto) 0.02 K/uL (0-0.2); Basophils % (auto) 0.1 %; Eosinophils % (auto) 0.6 %; Hematocrit (blood only) 31.7 % (37-47); Hemoglobin 10.4 g/dL (12.0-16.0); Immature Granulocytes # (auto) 0.09 K/uL (0.00-0.02); Immature Granulocytes % (auto) 0.5 %; Lymphocytes # (auto) 1.54 K/uL (1.2-3.4); Lymphocytes % (auto) 8.7 %; Mean Corpuscular Hemoglobin 30.1 pg (25-34); Mean Corpuscular Hgb Conc 32.8 g/dL (32-36); Mean Corpuscular Volume 91.9 fL (80-100); Monocytes # (auto) 1.35 K/uL (0.11-0.59); Monocytes % (auto) 7.6 %; Neutrophils # (auto) 14.64 K/uL (1.4-6.5); Neutrophils % (auto) 82.5 %; Platelet Count 203 K/uL (130-400); RDW Coefficient of Variation 13.7 % (11.5-14.5); RDW Standard Deviation 45.7 fL (36.4-46.3); Red Blood Count 3.45 M/uL (4.2-5.4); White Blood Count 17.74 K/uL (4.8-10.8)
--- NOTE | 2020-06-02 07:11 | Obstetrical Progress Note ---
Date of Service June 02, 2020 Assessment & Plan (1) Thrombophilia: Will start prophylactic lovenox per hematology. (2) Status post vaginal delivery: Doing well. Routine postop care. adat. encourage ambulation. zurita out and will monitor for void. Day #:: 1 Subjective Ambulation: limited ambulation Voiding: zurita catheter in place (zurita just out, has not voided) Passing Gas:: Yes Diet Tolerance:: clear liquids Lochia:: Small Feeding Type:: breast feeding pain controlled Physical Exam Constitutional WD/WN, vitals as above Cardiovascular Extremities: + edema (trace); no calf tenderness Gastrointestinal (Abdomen) soft, nt, nd ff/nt at u incision c/d/i Psychiatric A+Ox3, euthymic affect Results & Data ([facility]) Vital Signs (Past 12 Hours) Vital Signs Temp Pulse Resp BP Pulse Ox 06/02/20 04:00 14 94 06/02/20 02:45 16 93 06/02/20 01:20 16 91 06/02/20 00:25 16 90 06/01/20 23:35 16 95 06/01/20 23:00 36.8 C 73 16 96/60 L 94 06/01/20 22:00 16 95 06/01/20 19:40 36.8 C 75 16 115/67 95 06/01/20 19:15 16 97
[2020-06-02] MEDS ORDERED: PRENATAL VITAMIN 1 TAB PO SCH (08:00)
[2020-06-02] MEDS ORDERED: FERROUS SULFATE 325 MG TAB PO SCH (08:00)
[2020-06-02] MEDS: PROPRANOLOL HCL 20 MG TAB PO SCH ×2 (08:12→20:50)
[2020-06-02] MEDS: SIMETHICONE 80 MG CHEW PO SCH ×3 (08:12→20:46)
[2020-06-02] MEDS: DOCUSATE SODIUM 100 MG CAP PO SCH ×2 (08:12→20:47)
[2020-06-02] MEDS: PRENATAL VITAMIN 1 TAB PO SCH (08:12)
[2020-06-02] MEDS: FERROUS SULFATE 325 MG TAB PO SCH (08:12)
[2020-06-02] MEDS ORDERED: bisacodyL 5 MG TABEC PO SCH ×2 (20:00)
[2020-06-03] MEDS: IBUPROFEN 600 MG TAB PO PRN ×5 (03:33→20:14)
[2020-06-03] MEDS: OXYCODONE/ACETAMINOPHEN 5mg/325mg TAB PO PRN ×4 (03:33→20:13)
[2020-06-03 06:00] LABS: Hematocrit (blood only) 31.2 % (37-47); Hemoglobin 10.2 g/dL (12.0-16.0)
--- NOTE | 2020-06-03 08:35 | Obstetrical Progress Note ---
Date of Service June 03, 2020 Assessment & Plan (1) Thrombophilia: Lovenox (2) delivery delivered: Routine POD care. Did not wish to go home today. Subjective Ambulation: ambulating normally Voiding: no voiding problems Passing Gas:: Yes Diet Tolerance:: regular diet Lochia:: Small Feeding Type:: breast feeding (with supplementation) Physical Exam Constitutional WD/WN, vitals as above Eyes PERRL, conjunctivae normal, anicteric sclerae Neck normal visual inspection Respiratory normal respiratory effort and able to speak in complete sentences; no respiratory distress and no labored breathing Cardiovascular Rate/Rhythm: regular rate and regular rhythm Extremities: no edema Chest (Breasts) Chest: normal inspection of chest Gastrointestinal (Abdomen) Inspection/Auscultation: abdomen normal to inspection Soft, postgravid, incision c/d/i Psychiatric A+Ox3, euthymic affect Genitourinary OB Exam Abdomen: + fundal height Fundus: + firm and + relation to umbilicus (fundus just below umbilicus); not tender Results & Data ([facility]) Vital Signs (Past 12 Hours) Vital Signs Temp Pulse Pulse Resp BP Pulse Ox 06/02/20 23:58 98.6 F 70 20 99/63 L 93 06/02/20 21:00 98.6 F 82 20 117/72 97
[2020-06-03] MEDS: DOCUSATE SODIUM 100 MG CAP PO SCH ×2 (08:39→20:13)
[2020-06-03] MEDS: SIMETHICONE 80 MG CHEW PO SCH ×5 (08:40→20:13)
[2020-06-03] MEDS: PRENATAL VITAMIN 1 TAB PO SCH (08:40)
[2020-06-03] MEDS: FERROUS SULFATE 325 MG TAB PO SCH (08:40)
[2020-06-03] MEDS: PROPRANOLOL HCL 20 MG TAB PO SCH ×2 (08:45→20:20)
[2020-06-03] MEDS ORDERED: bisacodyL 10 MG SUPP PR PRN ×2 (08:47→09:01)
[2020-06-03] MEDS: ENOXAPARIN INJ 40 MG/0.4 ML SYR SQ SCH (10:31)
[2020-06-04] MEDS: IBUPROFEN 600 MG TAB PO PRN ×4 (00:44→15:27)
[2020-06-04] MEDS: OXYCODONE/ACETAMINOPHEN 5mg/325mg TAB PO PRN ×3 (05:36→15:26)
[2020-06-04 06:49] LABS: Creatinine Clr Calc Pharmacy 174.1 ml/min; Est GFR (African American) 138.5; Est GFR (Non-African American) 119.5
--- NOTE | 2020-06-04 07:07 | Obstetrical Progress Note ---
Date of Service June 04, 2020 Assessment & Plan (1) delivery delivered: - pt desires d/c - instructions given/Rx sent - f/u in 6 weeks (2) Thrombophilia: - Lovenox restarted - pt familiar with injection processes - continue for 6 weeks pp Subjective Ambulation: ambulating normally Voiding: no voiding problems Physical Exam Constitutional WD/WN, vitals as above Respiratory normal respiratory effort, lungs clear to auscultation Cardiovascular RRR, no murmur, no edema Gastrointestinal (Abdomen) Incision intact, appropriate post-op tenderness Musculoskeletal (-) deep calf tenderness Results & Data ([facility]) Vital Signs (Past 12 Hours) Vital Signs Temp Pulse Resp BP Pulse Ox 06/03/20 23:30 97.5 F L 72 18 120/75 92
[2020-06-04] MEDS: DOCUSATE SODIUM 100 MG CAP PO SCH (09:36)
[2020-06-04] MEDS: ENOXAPARIN INJ 40 MG/0.4 ML SYR SQ SCH (09:36)
[2020-06-04] MEDS: SIMETHICONE 80 MG CHEW PO SCH ×2 (09:36→15:27)
[2020-06-04] MEDS: PROPRANOLOL HCL 20 MG TAB PO SCH (09:36)
[2020-06-04] MEDS: PRENATAL VITAMIN 1 TAB PO SCH (09:36)
[2020-06-04] MEDS: FERROUS SULFATE 325 MG TAB PO SCH (09:36)
--- NOTE | 2020-06-14 16:24 | Discharge Summary (DS) ---
PROCEDURES WHILE ADMITTED: Primary low transverse section. HOSPITAL COURSE: The patient was admitted for induction of labor at term. The patient's labor course was initiated with oxytocin following a Arreola bulb the night before. The patient progressed in labor to 5.5 cm dilated, at which time she showed no progression and IUPC was placed. The patient was noted to have adequate contractions for greater than 12 hours and was offered a section at that point due to secondary to failure to progress. The patient opted to proceed with a section. A low transverse section was performed without complication. The patient remained inhouse for 3 days with no issues or concerns arising and was discharged home on day #3. The patient was provided both written and verbal discharge instructions with planned follow up at 6 weeks or as needed.
== END 2020-06-04 16:15 | disposition home or self-care (01) | DRG 787 ==
LOC: 4S1 07:34 → 4S2 06-01 12:00